=== PATIENT | female | born 1990 | race Caucasian/White ===

== ENCOUNTER 2019-04-05 09:58 | Emergency (ER) | payer BC, OTHER ==
[~2019-04-05] VITALS: Ht 157.5 cm; Wt 92.6 kg
[~2019-04-05 09:58] MED LIST: ALBU8.5H5 INH; DOCU240C31 PO; FLUT1DIS IH; IBUP200T49 PO; OXYC-302 PO; PREN1TAB60 PO
--- NOTE | 2019-04-05 10:22 | NUR ---
L&D CONTACTED AND WILL BE DOWN TO EVAL FHT
[2019-04-05] MEDS ORDERED: SODIUM CHLORIDE FLUSH 10ML SYR IVF ONE (11:00)
[2019-04-05 11:07] LABS: BASOPHILS # (AUTO) 0.08 x10^3/uL (0-0.1); BASOPHILS % (AUTO) 1 % (0-1); EOSINOPHILS # (AUTO) 0.18 x10^3/uL (0-0.4); EOSINOPHILS % (AUTO) 2 % (1-7); LYMPHOCYTES % (AUTO) 23 % (22-44); MD NO; MEAN CORPUSCULAR HEMOGLOBIN 27.8 pg (27.0-34.8); MEAN CORPUSCULAR HGB CONC 32.9 g/dL (32.4-35.8); MEAN CORPUSCULAR VOLUME 84.3 fL (80-100); MEAN PLATELET VOLUME 9.5 fL (7.4-10.4); MONOCYTES # (AUTO) 0.53 x10^3/uL (0.2-0.8); MONOCYTES % (AUTO) 7 % (2-9); NEUTROPHILS # (AUTO) 5.15 x10^3/uL (1.8-6.8); NEUTROPHILS % (AUTO) 67 % (42-75); PLATELET COUNT 364 x10^3/uL (130-400); RED BLOOD COUNT 4.29 x10^6/uL (3.82-5.3); RED CELL DISTRIBUTION WIDTH 13.5 % (9.6-15.2)
[2019-04-05 11:12] LABS: ALBUMIN 2.7 g/dL (3.4-5.0); ANION GAP 9 mmol/L (5-15); CALCIUM 8.6 mg/dL (8.5-10.1); CHLORIDE 111 mmol/L (98-107)
[2019-04-05 11:16] LABS: TROPONIN I < 0.015 ng/mL (0.000-0.045)
--- NOTE | 2019-04-05 12:10 | NUR ---
NEEDS NEW IV FOR CT-RN AWARE
--- NOTE | 2019-04-05 12:30 | NUR ---
PT TAKEN TO CT SCAN. IV TUBING POPPED WITH PRESSURE, CTA UNABLE TO BE COMPLETED. CT ATTEMPTED TO PLACE NEW LINE, UNSUCCESSFUL. AMANDA RN, AT BEDSIDE FOR U/S IV PLACEMENT AT THIS TIME. PT DENIES ANY CURRENT NEEDS OR CONCERNS. CALL LIGHT IN REACH.
[2019-04-05 13:13] VITALS: BP 113/62
--- NOTE | 2019-04-05 13:13 | NUR ---
PT UP TO RESTROOM WITH STRONG, INDEPENDENT GAIT. DENIES ANY NEEDS OR CONCERNS AT THIS TIME, UPDATED ON PLAN OF CARE. CALL LIGHT IN REACH.
[2019-04-05] MEDS ORDERED: OMNIPAQUE 350 MG/ML, 100ML BOTTLE ONE (13:51)
== END 2019-04-05 14:01 | disposition home or self-care (01) ==
LOC: ED 11:05
DX: O99.412 Diseases of the circulatory system complicating pregnancy, second trimester (principal); R07.1 Chest pain on breathing; R00.0 Tachycardia, unspecified; Z3A.25 25 weeks gestation of pregnancy
CPT/HCPCS: 36415; 71275; 80048; 82040; 84484; 85025; 93005; 99284; Q9967

== ENCOUNTER 2019-06-12 17:23 | Outpatient (CLI) | payer BC, OTHER ==
[~2019-06-12] VITALS: Ht 157.5 cm; Wt 93.1 kg
[2019-06-12 17:47] VITALS: BP 124/64
[2019-06-12 17:59] LABS: MICROSCOPIC INDICATED
[2019-06-12] MEDS ORDERED: ACETAMINOPHEN 500 MG TABLET ONE (18:15)
[2019-06-12] MEDS ORDERED: ACETAMINOPHEN 500 MG TABLET PO ONE (18:30)
== END 2019-06-12 18:55 | disposition home or self-care (01) ==
LOC: LDOP 17:23
PROVIDERS: ATTEND Obstetrics & Gynecology
DX: O26.893 Other specified pregnancy related conditions, third trimester (principal); R10.9 Unspecified abdominal pain; Z3A.35 35 weeks gestation of pregnancy
CPT/HCPCS: 59025; 81001; 99211; G0463

== ENCOUNTER 2019-06-28 12:16 | Outpatient (CLI) | payer BC, OTHER ==
[~2019-06-28] VITALS: Ht 157.5 cm; Wt 95.5 kg
[2019-06-28 12:20] VITALS: BP 111/78
== END 2019-06-28 13:25 | disposition home or self-care (01) ==
LOC: LDOP 12:16
PROVIDERS: ATTEND Obstetrics & Gynecology
DX: O36.8130 Decreased fetal movements, third trimester, not applicable or unspecified (principal); Z3A.27 27 weeks gestation of pregnancy
CPT/HCPCS: 59025; 99211; G0463

== ENCOUNTER 2019-07-09 05:17 | Inpatient (IN) | payer BC, OTHER ==
[~2019-07-09] VITALS: Ht 157.5 cm; Wt 95.5 kg
[2019-07-09] MEDS ORDERED: NEWBORN KIT ONE (05:28)
[2019-07-09] MEDS ORDERED: METOCLOPRAMIDE 5 MG/ML, 2ML IV ONE (06:00)
[2019-07-09] MEDS ORDERED: LACTATED RINGERS 1,000 ML IVBOLUS ONE (06:00)
[2019-07-09] MEDS ORDERED: SODIUM CITRATE/CITRIC ACID 30 ML UDC PO ONE (06:00)
[2019-07-09] MEDS ORDERED: AZITHROMYCIN 500 MG in SODIUM CHLORIDE 0.9% 250 ML IV ONE (06:00)
[2019-07-09 06:07] VITALS: BP 121/85
[2019-07-09 06:23] LABS: BASOPHILS # (AUTO) 0.05 x10^3/uL (0-0.1); BASOPHILS % (AUTO) 1 % (0-1); EOSINOPHILS # (AUTO) 0.17 x10^3/uL (0-0.4); EOSINOPHILS % (AUTO) 2 % (1-7); LYMPHOCYTES # (AUTO) 2.62 x10^3/uL (1-3.4); LYMPHOCYTES % (AUTO) 32 % (22-44); MD NO; MEAN CORPUSCULAR HEMOGLOBIN 24.1 pg (27.0-34.8); MEAN CORPUSCULAR HGB CONC 31.7 g/dL (32.4-35.8); MONOCYTES % (AUTO) 6 % (2-9); NEUTROPHILS # (AUTO) 4.88 x10^3/uL (1.8-6.8); NEUTROPHILS % (AUTO) 59 % (42-75); PLATELET COUNT 302 x10^3/uL (130-400); RED BLOOD COUNT 4.41 x10^6/uL (3.82-5.3); RED CELL DISTRIBUTION WIDTH 15.5 % (9.6-15.2)
[2019-07-09] MEDS ORDERED: OXYTOCIN 30U/ 0.9% NaCL 500ML 500 ML ONE (06:28)
[2019-07-09] MEDS ORDERED: METOCLOPRAMIDE 5 MG/ML, 2ML ONE (06:28)
[2019-07-09] MEDS ORDERED: SODIUM CITRATE/CITRIC ACID 30 ML UDC ONE (06:29)
[2019-07-09] MEDS ORDERED: OXYTOCIN 10 UNITS/ML, 1ML ONE (07:16)
[2019-07-09] MEDS ORDERED: CEFAZOLIN 1,000 MG ONE (07:16)
[2019-07-09] MEDS ORDERED: ONDANSETRON 2MG/ML, 2ML ONE (07:16)
[2019-07-09] MEDS ORDERED: HYDROmorphone 2 MG/ML, 1ML ONE (07:17)
[2019-07-09] MEDS ORDERED: FENTANYL PF 100 MCG/2ML ONE (07:17)
[2019-07-09] MEDS ORDERED: KETOROLAC 30 MG/1 ML ONE (08:26)
[2019-07-09] MEDS: LACTATED RINGERS 1,000 ML IV SCH ×4 (08:31→18:31)
[2019-07-09] MEDS ORDERED: MISOPROSTOL 200 MCG TABLET PR PRN (09:00)
[2019-07-09] MEDS ORDERED: OXYcodone IR 5MG TABLET PO PRN (09:00)
[2019-07-09] MEDS ORDERED: ACETAMINOPHEN 325 MG TABLET PO PRN (09:00)
[2019-07-09] MEDS ORDERED: METHYLERGONOVINE 0.2 MG/ML IM PRN (09:00)
[2019-07-09] MEDS ORDERED: CARBOPROST TROMETHAMINE 250 MCG/ML, 1ML IM PRN (09:00)
[2019-07-09] MEDS: PRENATAL VIT/IRON/FA 1 EACH TABLET PO SCH (09:00)
[2019-07-09] MEDS: KETOROLAC 30 MG/1 ML IV SCH ×3 (09:00→19:59)
[2019-07-09] MEDS ORDERED: ONDANSETRON 2MG/ML, 2ML IV PRN (09:00)
[2019-07-09] MEDS ORDERED: morphine SULFATE 10 MG/ML, 1ML IVPush PRN ×2 (09:00)
[2019-07-09] MEDS ORDERED: OXYcodone IR 5MG TABLET ONE (10:14)
[2019-07-09] MEDS: OXYcodone IR 5MG TABLET PO PRN ×3 (10:16→20:00)
[2019-07-09] MEDS: OXYTOCIN 30U/ 0.9% NaCL 500ML 500 ML IV SCH ×2 (10:21→18:31)
[2019-07-09 11:00] VITALS: BP 119/75
[2019-07-09 15:32] LABS: BASOPHILS # (AUTO) 0.05 x10^3/uL (0-0.1); BASOPHILS % (AUTO) 0 % (0-1); EOSINOPHILS # (AUTO) 0.17 x10^3/uL (0-0.4); EOSINOPHILS % (AUTO) 2 % (1-7); LYMPHOCYTES # (AUTO) 2.29 x10^3/uL (1-3.4); LYMPHOCYTES % (AUTO) 22 % (22-44); MD NO; MEAN CORPUSCULAR HEMOGLOBIN 24.3 pg (27.0-34.8); MEAN CORPUSCULAR HGB CONC 31.6 g/dL (32.4-35.8); MEAN CORPUSCULAR VOLUME 76.8 fL (80-100); MEAN PLATELET VOLUME 10.3 fL (7.4-10.4); MONOCYTES # (AUTO) 0.66 x10^3/uL (0.2-0.8); MONOCYTES % (AUTO) 6 % (2-9); NEUTROPHILS # (AUTO) 7.15 x10^3/uL (1.8-6.8); NEUTROPHILS % (AUTO) 69 % (42-75); PLATELET COUNT 276 x10^3/uL (130-400); RED BLOOD COUNT 4.08 x10^6/uL (3.82-5.3); RED CELL DISTRIBUTION WIDTH 15.7 % (9.6-15.2)
[2019-07-09 15:53] VITALS: BP 120/80
[2019-07-09] MEDS: DOCUSATE 100 MG CAPSULE PO PRN (19:59)
[2019-07-09 20:00] VITALS: BP 115/75
[2019-07-10] MEDS: LACTATED RINGERS 1,000 ML IV SCH ×5 (00:31→16:31)
[2019-07-10 01:00] VITALS: BP 117/74
[2019-07-10] MEDS: OXYcodone IR 5MG TABLET PO PRN ×5 (01:03→22:22)
[2019-07-10] MEDS: KETOROLAC 30 MG/1 ML IV SCH ×4 (01:52→20:00)
[2019-07-10] MEDS: OXYTOCIN 30U/ 0.9% NaCL 500ML 500 ML IV SCH ×2 (04:31→14:31)
[2019-07-10] MEDS: PRENATAL VIT/IRON/FA 1 EACH TABLET PO SCH (07:45)
[2019-07-10] MEDS: DOCUSATE 100 MG CAPSULE PO PRN ×2 (07:45→20:30)
[2019-07-10 07:55] VITALS: BP 109/76
[2019-07-10 19:47] VITALS: BP 124/80
[2019-07-10] MEDS: SIMETHICONE 80 MG CHEW TAB PO PRN (20:30)
[2019-07-11] MEDS: LACTATED RINGERS 1,000 ML IV SCH ×4 (00:31→10:31)
[2019-07-11] MEDS: OXYTOCIN 30U/ 0.9% NaCL 500ML 500 ML IV SCH ×2 (00:31→10:31)
[2019-07-11] MEDS: KETOROLAC 30 MG/1 ML IV SCH (02:00)
[2019-07-11] MEDS: OXYcodone IR 5MG TABLET PO PRN ×3 (02:35→11:35)
[2019-07-11] MEDS ORDERED: IBUPROFEN 800 MG TABLET ONE (06:11)
[2019-07-11] MEDS ORDERED: IBUPROFEN 200 MG TABLET PO PRN (06:15)
[2019-07-11] MEDS ORDERED: IBUPROFEN 800 MG TABLET PO PRN ×2 (06:22→09:00)
[2019-07-11] MEDS ORDERED: IBUP-1222 PO (07:02)
[2019-07-11] MEDS ORDERED: OXYC-302 PO (07:02)
[2019-07-11 07:30] VITALS: BP 113/75
[2019-07-11] MEDS: DOCUSATE 100 MG CAPSULE PO PRN (08:50)
[2019-07-11] MEDS: PRENATAL VIT/IRON/FA 1 EACH TABLET PO SCH (08:50)
[2019-07-11] MEDS ORDERED: MEASLES,MUMPS&RUBELLA VACC/PF 0.5 ML SQ-VACC ONE (11:30)
[2019-07-11] MEDS: SIMETHICONE 80 MG CHEW TAB PO PRN (11:34)
== END 2019-07-11 12:40 | disposition home or self-care (01) | DRG 785 ==
LOC: LDIP 05:17 → 2NW 10:50
PROVIDERS: ADMIT Obstetrics & Gynecology; ATTEND Obstetrics & Gynecology
PROC: 0UB70ZZ Excision of Bilateral Fallopian Tubes, Open Approach (ICD-10-PCS; principal; 2019-07-09)
PROC: 10D00Z1 Extraction of Products of Conception, Low, Open Approach (ICD-10-PCS; 2019-07-09)
DX: O34.211 Maternal care for low transverse scar from previous cesarean delivery (principal); O99.52 Diseases of the respiratory system complicating childbirth; J45.909 Unspecified asthma, uncomplicated; Z3A.39 39 weeks gestation of pregnancy; Z91.013 Allergy to seafood; Z30.2 Encounter for sterilization; Z37.0 Single live birth
CPT/HCPCS: 36415; 85025; 86592; 86850; 86900; 88302; G0378; J0456; J0690; J1170; J1885; J2405; J3010; J2590; J2765; J7050; J7120